=== PATIENT | female | born 1970 | race Asian ===

== ENCOUNTER 2023-10-07 06:17 | Day surgery (SDC) | payer BC, SELFPAY ==
[2023-10-07] VITALS (8 sets, daily range): BP systolic 136–160; BP diastolic 81–93; BMI 27.2
[2023-10-07] MEDS: NORMOSOL-R 1000 IV (11:20)
[2023-10-07] MEDS: TYLENOL 1000 MG PO (11:39)
[2023-10-07] MEDS: MOBIC 15 MG PO (11:39)
[2023-10-07 11:57] LABS: Glucose - Point of Care 71 mg/dl (70-99)
[2023-10-07] MEDS: ZOFRAN 4 MG IV (13:34)
== END 2023-10-07 15:53 | disposition home or self-care (01) ==
LOC: SDS 06:17
PROVIDERS: ATTENDING PHYSICIAN Orthopaedic Surgery Hand Surgery
DX: M75.112 Incomplete rotator cuff tear or rupture of left shoulder, not specified as traumatic (principal); M75.42 Impingement syndrome of left shoulder; M19.012 Primary osteoarthritis, left shoulder
CPT/HCPCS: 29823; 29826; 29824; 82962